=== PATIENT | male | born 1945 | race Caucasian/White ===

== ENCOUNTER 2016-03-20 08:16 | Outpatient (RCR) | payer MEDICARE, OTHER | END 2016-03-20 16:00 | disposition home or self-care (01) | LOC: WOUNDCARE 08:16 | PROVIDERS: ATTEND Internal Medicine | DX: L03.115 Cellulitis of right lower limb (principal); L84 Corns and callosities; S99.821A Other specified injuries of right foot, initial encounter; X58.XXXA Exposure to other specified factors, initial encounter; Y99.8 Other external cause status | CPT/HCPCS: 11042; 11055 ==

== ENCOUNTER → 2017-09-22 | Outpatient (CLI) | payer MEDICARE, OTHER | LOC: WOUNDCARE 08:53 | PROVIDERS: ATTEND Nurse Practitioner | DX: L03.115 Cellulitis of right lower limb (principal); S91.301D Unspecified open wound, right foot, subsequent encounter; L84 Corns and callosities | CPT/HCPCS: 11042 ==

== ENCOUNTER → 2017-10-06 | Outpatient (CLI) | payer MEDICARE, OTHER | LOC: WOUNDCARE 08:10 | PROVIDERS: ATTEND Nurse Practitioner | DX: L03.115 Cellulitis of right lower limb (principal); S91.301A Unspecified open wound, right foot, initial encounter; L84 Corns and callosities | CPT/HCPCS: 99212 ==